=== PATIENT | male | born 1945 | race Caucasian/White ===

== ENCOUNTER 2021-01-02 21:15 | Emergency (ER) | payer OTHER, MEDICARE, SELFPAY ==
[2021-01-02 22:10] VITALS: BP 213/108; PULSE 93; RESP 18; TEMP 38.4; O2SAT 95; BMI 33.3
--- NOTE | 2021-01-02 22:32 | ED_ITS ---
HPI - General Adult General: Chief complaint: General Medical Stated complaint: sore throat Time Seen by Provider: 01/02/21 22:32 Source: patient Mode of arrival: ambulatory Limitations: no limitations History of Present Illness: HPI narrative: Patient is a 75-year-old male who presents to ED today with complaints of a sore throat. Patient tells me throat pain initially began 3 to 4 days ago. He was seen yesterday at [facility]. they tested him for COVID which was negative. Patient has received his COVID immunizations. He was seen at urgent care today and diagnosed with acute pharyngitis and placed on azithromycin. Tested for strep which was negative. Documentation also states that he was given a prescription for viscous lidocaine however patient states he was never provided the prescription. He is continuing to eat and drink normally. He does not complain of fevers although was noted to be febrile in triage. He has complaints of a mild cough. Does not feel short of breath. No chest pain. No sick contacts. No other URI symptoms. Onset (ago): day(s) Severity: moderate Pain Consistency: constant Relieving factors: none Exacerbating factors: other (swallowing) Associated symptoms: Deny chest pain, confusion, dyspnea, headache(s), malaise, nausea, rash or vomiting Review of Systems Const: Denies: fever(s), chills, body aches, change in appetite, change in weight, fatigue or malaise Eyes: Denies: change in vision or blurry vision ENMT: Reports: throat pain and odynophagia; Denies: uvular edema, enlarged tonsils, mouth pain, swelling of lips/tongue, oral sores, bleeding gums, dental pain, ear or mastoid pain, ear discharge, nasal discharge, nasal congestion or epistaxis Card: Denies: chest pain Resp: Denies: dyspnea GI: Denies: nausea or vomiting Musc: Denies: neck pain Skin/Breast: Denies: rash Neuro: Denies: headache(s), numbness in extremities, weakness in extremities, sensory changes, lack of coordination, difficulty walking, frequent falls, dizziness, confusion or Slurred speech present [facility] ED PFSH: Medical History (Updated 01/02/21 @ 22:46 by MOE Bernal) Acute pharyngitis 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 Chase Bilateral L3-L4 decompression History of lumbar surgery (~1979) [place], [place] Lumbar decompression History of parathyroidectomy Family History Mother Diabetes Father Cancer Heart disease Social History Smoking and tobacco status: never smoked Alcohol intake: current Household members: spouse Marital status: Current occupational status: retired History of recent travel: No Physical Exam Const: COMMON NORMALS: no acute distress, patient oriented x3, no limitations and alert GENERAL APPEARANCE: cooperative ORIENTATION/CONSCIOUSNESS: Yes awake, Yes oriented to person, Yes oriented to place and Yes oriented to time HENMT: COMMON NORMALS: normocephalic, atraumatic, hearing grossly normal bilaterally, external ears normal, EAC's normal, TM's normal bilaterally, Normal external nose present, Normal nasal mucous membranes and turbinates present, moist oral mucous membranes and gingiva normal HEAD & SCALP: normal to inspection, normocephalic and atraumatic FACE & SINUS: normal facial exam and sinuses nontender NOSE: Normal external nose present and Normal nasal mucous membranes and turbinates present EXTERNAL EAR: Yes external ears normal EXTERNAL AUDITORY CANAL: EAC's normal TYMPANIC MEMBRANE: TM's normal bilaterally MOUTH: Normal oral and palatal mucosa present, lip normal and tongue normal THROAT: tonsils normal, uvula midline and posterior oropharynx abnormal erythema; no uvular edema Eye: GENERAL EYE: appearance normal, both eyes and all related structures Neck/C-Spine: COMMON NORMALS: full ROM, no lymphadenopathy and no meningeal signs Resp: COMMON NORMALS: normal respiratory effort and clear to auscultation bilaterally AUSCULTATION: clear to auscultation bilaterally Cardio: COMMON NORMALS: regular rate and regular rhythm RATE: regular rate RHYTHM: regular rhythm Extremity: COMMON NORMALS: normal to inspection Neuro: CASSIA COMA SCALE: document GCS findings [place] coma scale eye opening: Spontaneous Cassia coma scale verbal response: Orientated Cassia coma scale motor response: Obey commands Cassia coma scale total score: 15 COMMON NORMALS: patient oriented x3 and CN's II-XII intact bilaterally SENSORIUM/ORIENTATION: Yes alert, Yes oriented to person, Yes oriented to place and Yes oriented to time MENINGEAL SIGNS: Yes no meningeal signs Skin: COMMON NORMALS: no rashes or lesions noted GENERAL SKIN EXAM: no rashes or lesions noted Course Vital Signs: Vital signs: Vital Signs Temperature 101.1 F H 01/02/21 22:10 Pulse Rate 93 01/02/21 22:10 Respiratory Rate 18 01/02/21 22:10 Blood Pressure 213/108 01/02/21 22:10 Pulse Oximetry 95 01/02/21 22:10 MDM - General Adult MDM Narrative: Medical decision making narrative: Patient with acute pharyngitis clinically. No neck swelling. No signs/symptoms of airway obstruction. Noted to be febrile and hypertensive in triage. Admittingly has not been taking his BP meds. Does not complain of a headache or visual changes. He does not complain of shortness of breath, difficulty breathing, or chest pain. We will re-write write him a prescription for the viscous lidocaine to help with pain. He was given a shot of IM Rocephin here as well as 1000mg tylenol for the fever. Recommend he continue the azithromycin given to him by Dr. Rivero earlier today. [facility] symptoms persist. Return to ED precautions given. Discharge Plan Discharge Patient Disposition: Home Clinical Impression: Acute pharyngitis Qualifiers: Pharyngitis/tonsillitis etiology: unspecified etiology Qualified Code(s): J02.9 - Acute pharyngitis, unspecified Condition: Stable Prescriptions: New Lidocaine Viscous 2 % solution 15 ml PO Q4H Qty: 100 RF: 0 No Action escitalopram oxalate 20 mg tablet 10 mg PO DAILY RF: 0 simvastatin 40 mg tablet 40 mg PO DAILY RF: 0 levothyroxine [Synthroid] 112 mcg tablet 112 mcg PO DAILY RF: 0 amlodipine 5 mg tablet 5 mg PO DAILY RF: 0 tamsulosin 0.4 mg capsule 0.4 mg PO DAILY RF: 0 losartan PO RF: 0 famotidine [Acid Community Services Officer (famotidine)] PO RF: 0 azithromycin 250 mg tablet See Rx Instructions PO .COMPLEX Qty: 6 RF: 0 Lidocaine Viscous 2 % solution 5 ml mucous membrane Q6H PRN (Reason: throat pain) Qty: 100 RF: 0 Discharge Orders: Discharge ED (Routine); Ordered 01/02/21 Ordered By: Tami Lake Referrals: Lewis Clements DO [Primary Care Provider] - Patient Instructions: Pharyngitis (ED) Activity Restrictions/Additional Instructions: TroubleYou may continue your current antibiotics as prescribed. [facility] for worsening or not improving symptoms. You need to return to the emergency department immediately for trouble swallowing, lilli bility to eat or drink, controlling your saliva, or any other concerns you may have. Coding Level of Care Code ED Substitute Bus Driver for Laura Fwd Exam Comprehensive
[2021-01-02] MEDS: acetaminophen 500 mg Tablet 1000 MG PO (22:53)
[2021-01-02] MEDS: cefTRIAXone 1,000 MG in lidocaine 1% 2.1 ML 2.1 MG IM (22:55)
== END 2021-01-02 23:26 | disposition home or self-care (01) ==
PROVIDERS: Emergency Provider Physician Assistant; PCP Emergency Medicine Emergency Medical Services
DX: J02.9 Acute pharyngitis, unspecified (principal)
CPT/HCPCS: 87880; 96372; 99283; J0696

== ENCOUNTER 2021-07-19 19:14 | Emergency (ER) | payer OTHER, MEDICARE, SELFPAY ==
[2021-07-19 19:54] VITALS: BP 206/95; PULSE 112; RESP 18; TEMP 38.4; O2SAT 93; BMI 34.6
--- NOTE | 2021-07-19 20:03 | XRR_ITS ---
PROCEDURE INFORMATION: Exam: XR Chest Exam date and time: 07/19/2021 8:03 PM Age: 76 years old Clinical indication: Shortness of breath; Additional info: Fever TECHNIQUE: Imaging protocol: XR of the chest. Views: 1 view. COMPARISON: CR Chest 1 [place] [id number] 12/21/2016 6:28 PM FINDINGS: Lungs: Lungs are clear. Pleural spaces: There is no pleural effusion or pneumothorax. Heart/Mediastinum: There is mild enlargement of the cardiac silhouette. Diaphragm: There is moderate asymmetric elevation of the right hemidiaphragm. Bones/joints: Bones are unremarkable. XR/XR chest 1V portable [id number] IMPRESSION: No acute findings.
[2021-07-19 20:30] VITALS: BP 197/85; PULSE 86; RESP 18; O2SAT 94
--- NOTE | 2021-07-19 20:35 | ED_ITS ---
HPI - General Adult General: Chief complaint: General Medical Stated complaint: Sore Throat\Conjestions\Headache\Fever Time Seen by Provider: 07/19/21 20:17 Source: patient Mode of arrival: ambulatory Limitations: no limitations History of Present Illness: HPI narrative: 76-year-old male states that over the last week has been having cough congestion body aches sore throat no fever. States the chest is worsened throughout the week is febrile here. Denies any shortness of breath denies any worsening or improving factor he has had no vomiting or diarrhea. Denies any chest pain or abdominal pain denies any neck stiffness. Patient is resting comfortably here. Associated symptoms: Reports malaise; Deny chest pain, headache(s), nausea, rash or vomiting Review of Systems Const: Reports: fever(s), chills, body aches and malaise Eyes: Denies: blurry vision or eye discomfort ENMT: Reports: throat pain Card: Denies: chest pain Resp: Reports: non-productive cough GI: Denies: abdominal pain, nausea, vomiting or diarrhea : Denies: dysuria Musc: Denies: neck pain or back pain Skin/Breast: Denies: rash Neuro: Denies: headache(s) Psych: Denies: depression Wilian/Lymph: Denies: easy bruising All/Imm: Denies: urticaria PFSH ED PFSH: Medical History Acute pharyngitis 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 Chase Bilateral L3-L4 decompression History of lumbar surgery (~1979) [place], [place] Lumbar decompression History of parathyroidectomy Family History Mother Diabetes Father Cancer Heart disease Social History Smoking and tobacco status: never smoked Alcohol intake: current Household members: spouse Marital status: Current occupational status: retired History of recent travel: No Physical Exam Const: COMMON NORMALS: no acute distress, patient oriented x3 and healthy appearing HENMT: COMMON NORMALS: normocephalic and atraumatic HEAD & SCALP: normocephalic and atraumatic MOUTH: Normal oral and palatal mucosa present THROAT: posterior oropharynx normal Eye: COMMON NORMALS: Equal, round and reactive pupils present and EOMs intact bilaterally PUPIL: Yes Equal, round and reactive pupils present Neck/C-Spine: COMMON NORMALS: full ROM, supple and no meningeal signs Chest: COMMONS NORMALS: normal inspection of the chest and normal palpation of entire chest wall Resp: COMMON NORMALS: normal respiratory effort, No retractions, No use of accessory muscles and clear to auscultation bilaterally AUSCULTATION: clear to auscultation bilaterally Cardio: COMMON NORMALS: regular rate, regular rhythm and No murmurs present (Cardio) RATE: regular rate RHYTHM: regular rhythm GI: COMMON NORMALS: Normal to inspection, nondistended, normoactive bowel sounds present, Soft to palpation, non-tender and no masses PALPATION: Yes Soft to palpation Extremity: COMMON NORMALS: normal to inspection and full ROM Neuro: COMMON NORMALS: patient oriented x3, moves all extremities and no focal motor deficits MENINGEAL SIGNS: Yes no meningeal signs Psych: COMMON NORMALS: mental status grossly normal, Normal thought process present and cooperative THOUGHT PROCESS: Normal thought process present Skin: COMMON NORMALS: no rashes or lesions noted and no wounds GENERAL SKIN EXAM: no rashes or lesions noted Course Vital Signs: Vital signs: Vital Signs Temperature 101.2 F H 07/19/21 19:54 Pulse Rate 86 07/19/21 22:49 Respiratory Rate 18 07/19/21 22:49 Blood Pressure 173/89 07/19/21 23:05 Pulse Oximetry 93 07/19/21 22:49 MDM - General Adult MDM Narrative: Medical decision making narrative: Patient presents here with fever I did offer him admission as he meets sepsis criteria with his temperature. Was unable to find a source he feels much improved his temperature is improved he is not hypotensive I did offer him admission he states he felt fine and would like to go home we will start him on doxycycline follow blood cultures start him on potassium he is to return if worsening or if he changes mind about admission he understands agrees to plan. Lab Data: Labs: Lab Results 07/19/21 07/19/21 07/19/21 20:44 20:44 20:44 WBC 15.3 10^3/uL H 10 ^3/uL (4.0-10.0) RBC 5.20 10^6/uL 10^6 /uL (4.1-5.3) Hgb 15.0 g/dL g/dL (11.7-16.6) Hct 44.3 % % (42.0-52.0) MCV 85.2 fl fl (80-94) MCH 28.8 pg pg (28.0-34.0) MCHC 33.9 g/dL g/dL (30.0-36.0) RDW 13.2 % % (12.1-15.1) Plt Count 281 10^3/cmm 10^3 /cmm (130-400) MPV 9.6 fL fL (7.4-10.4) Neut % (Auto) 75.6 % % Lymph % (Auto) 11.0 % % Sandoval % (Auto) 9.8 % % Eos % (Auto) 1.8 % % Baso % (Auto) 0.5 % % Neut # (Auto) 11.61 10^3/uL H 1 0^3/uL (1.8-7.7) Lymph # (Auto) 1.7 10^3/uL 10^3/ uL (0.8-4.8) Sandoval # (Auto) 1.5 10^3/uL H 10^ 3/uL (0.2-0.9) Eos # (Auto) 0.3 10^3/uL 10^3/ uL (0.0-0.8) Baso # (Auto) 0.1 10^3/uL 10^3/ uL (0.0-0.1) Nucleated RBC % (a uto) 0 % % Nucleated RBCs # 0.0 /100WBC /100W BC Sodium 138 mmol/L mmol/L (136-145) Potassium 2.8 mmol/L L* mmo l/L (3.5-5.1) Chloride 99 mmol/L mmol/L (98-107) Carbon Dioxide 26 mmol/L mmol/L (22-29) Anion Gap 15.8 (5-19) BUN 14 mg/dL mg/dL (8-23) Creatinine 1.0 mg/dL mg/dL (0.7-1.2) GFR Calculation Not Reportable Glucose 137 mg/dL H mg/dL (65-115) Calculated Osmolal ity 289 mOsm/kg mOsm/ kg (285-295) Lactic Acid 1.0 mmol/L mmol/L (0.5-2.2) Calcium 8.0 mg/dL L mg/dL (8.5-10.5) Total Bilirubin 0.5 mg/dL mg/dL (0.15-1.2) AST 11 U/L U/L (0-40) ALT 13 U/L U/L (0-41) Alkaline Phosphata se 65 IU/L IU/L (40-130) Total Protein 6.8 g/dL g/dL (6.6-8.7) Albumin 3.8 g/dL g/dL (3.5-5.2) Globulin 3.0 g/dL g/dL (1.3-4.6) Urine Color Urine Appearance Urine pH Ur Specific Gravit y Urine Protein Urine Glucose (UA) Urine Ketones Urine Blood Urine Nitrate Urine Bilirubin Urine Urobilinogen Ur Leukocyte Sydney ase Urine RBC Urine WBC Ur Squamous Epith Cells Amorphous Sediment Urine Bacteria Influenza Type A A g Influenza Type B A g SARS-CoV-2 Ag (Rap id) Group A Strep Rapi d 07/19/21 07/19/21 07/19/21 21:36 21:36 21:36 WBC RBC Hgb Hct MCV MCH MCHC RDW Plt Count MPV Neut % (Auto) Lymph % (Auto) Sandoval % (Auto) Eos % (Auto) Baso % (Auto) Neut # (Auto) Lymph # (Auto) Sandoval # (Auto) Eos # (Auto) Baso # (Auto) Nucleated RBC % (a uto) Nucleated RBCs # Sodium Potassium Chloride Carbon Dioxide Anion Gap BUN Creatinine GFR Calculation Glucose Calculated Osmolal ity Lactic Acid Calcium Total Bilirubin AST ALT Alkaline Phosphata se Total Protein Albumin Globulin Urine Color Urine Appearance Urine pH Ur Specific Gravit y Urine Protein Urine Glucose (UA) Urine Ketones Urine Blood Urine Nitrate Urine Bilirubin Urine Urobilinogen Ur Leukocyte Sydney ase Urine RBC Urine WBC Ur Squamous Epith Cells Amorphous Sediment Urine Bacteria Influenza Type A A g Negative (Negative) Influenza Type B A g Negative (Negative) SARS-CoV-2 Ag (Rap id) Negative (Negative) Group A Strep Rapi d Negative (Negative) 07/19/21 21:44 WBC RBC Hgb Hct MCV MCH MCHC RDW Plt Count MPV Neut % (Auto) Lymph % (Auto) [place] % (Auto) Eos % (Auto) Baso % (Auto) Neut # (Auto) Lymph # (Auto) [place] # (Auto) Eos # (Auto) Baso # (Auto) Nucleated RBC % (a uto) Nucleated RBCs # Sodium Potassium Chloride Carbon Dioxide Anion Gap BUN Creatinine GFR Calculation Glucose Calculated Osmolal ity Lactic Acid Calcium Total Bilirubin AST ALT Alkaline Phosphata se Total Protein Albumin Globulin Urine Color Yellow (Yellow) Urine Appearance Clear (CLEAR) Urine pH 7 (5-7) Ur Specific Gravit y 1.010 (1.005-1.030) Urine Protein Trace (Negative) Urine Glucose (UA) Norm (Normal) Urine Ketones Negative (Negative) Urine Blood Trace H (Negative) Urine Nitrate Negative (Negative) Urine Bilirubin Neg (Negative) Urine Urobilinogen Norm mg/dL mg/dL (Negative) Ur Leukocyte Sydney ase Negative (Negative) Urine RBC 0-4 /hpf H /hpf (0-2) Urine WBC 5-10 /hpf H /hpf (0-5) Ur Squamous Epith Cells 0-4 /hpf H /hpf (0-5) Amorphous Sediment Not Reportable Urine Bacteria Trace /hpf /hpf (NONE) Influenza Type A A g Influenza Type B A g SARS-CoV-2 Ag (Rap id) Group A Strep Rapi d Imaging Data^: CXR: Attestation: I personally reviewed and interpreted this imaging study as follows: My impression: [address] [address] XRay Report Signed Patient: Byron Dixon Unit #: [id number] : 1945 Age/Sex: 76 / M ADM Date: 07/19/21 Loc: ER Room/Bed: Attending Dr: Ordering Provider/Ordering MD: Parish Cedillo MD Date of Service: 07/19/21 Procedure(s): XR chest 1V portable [id number] Accession Number(s): [id number] Report Number: [id number] PROCEDURE INFORMATION: Exam: XR Chest Exam date and time: 07/19/2021 8:03 PM Age: 76 years old Clinical indication: Shortness of breath; Additional info: Fever TECHNIQUE: Imaging protocol: XR of the chest. Views: 1 view. COMPARISON: CR Chest 1 [place] [id number] 12/21/2016 6:28 PM FINDINGS: Lungs: Lungs are clear. Pleural spaces: There is no pleural effusion or pneumothorax. Heart/Mediastinum: There is mild enlargement of the cardiac silhouette. Diaphragm: There is moderate asymmetric elevation of the right hemidiaphragm. Bones/joints: Bones are unremarkable. XR/XR chest 1V portable [id number] IMPRESSION: No acute findings. Dictated By: Shola Medina MD Signed By: Shola Medina MD Signed Date/Time: 07/19/212099 DD/ 02 Discharge Plan Discharge Patient Disposition: Home Clinical Impression: Acute viral syndrome, Fever Condition: Stable Prescriptions: New doxycycline hyclate 100 mg tablet 100 mg PO BID 7 Days Qty: 14 RF: 0 potassium chloride 20 mEq packet 40 meq PO BID 5 Days Qty: 30 RF: 0 No Action escitalopram oxalate 20 mg tablet 10 mg PO DAILY RF: 0 simvastatin 40 mg tablet 40 mg PO DAILY RF: 0 levothyroxine [Synthroid] 112 mcg tablet 112 mcg PO DAILY RF: 0 amlodipine 5 mg tablet 5 mg PO DAILY RF: 0 tamsulosin 0.4 mg capsule 0.4 mg PO DAILY RF: 0 losartan PO RF: 0 famotidine [Acid Tip Stretcher (famotidine)] PO RF: 0 azithromycin 250 mg tablet See Rx Instructions PO .COMPLEX Qty: 6 RF: 0 Lidocaine Viscous 2 % solution 5 ml mucous membrane Q6H PRN (Reason: throat pain) Qty: 100 RF: 0 Lidocaine Viscous 2 % solution 15 ml PO Q4H Qty: 100 RF: 0 Discharge Orders: Discharge ED (Routine); Ordered 07/19/21 Ordered By: Parish Cedillo Referrals: Lewis Clements DO [Primary Care Provider] - Discharge Diet: Advance as tolerated Discharge Activity: Resume usual activity Patient Instructions: Fever in Adults (ED), Viral Syndrome (ED) Coding Level of Care Code ED Title Insurance Sales Representative for Chg Fwd Exam Comprehensive
[2021-07-19 20:50] LABS: Basophils # 0.1 10^3/uL (0.0-0.1); Basophils % 0.5 %; Eosinophils # 0.3 10^3/uL (0.0-0.8); Eosinophils % 1.8 %; Hematocrit 44.3 % (42.0-52.0); Lymphocytes # 1.7 10^3/uL (0.8-4.8); Mean Corpuscular HGB Conc 33.9 g/dL (30.0-36.0); Mean Corpuscular Hemoglobin 28.8 pg (28.0-34.0); Mean Corpuscular Volume 85.2 fl (80-94); Mean Platelet Volume 9.6 fL (7.4-10.4); Monocytes # 1.5 10^3/uL (0.2-0.9); Monocytes % 9.8 %; Neutrophils # 11.61 10^3/uL (1.8-7.7); Neutrophils % 75.6 %; Nucleated Red Blood Cells % 0 %; Platelet Count 281 10^3/cmm (130-400); Red Cell Distribution Width 13.2 % (12.1-15.1); White Blood Count 15.3 10^3/uL (4.0-10.0)
[2021-07-19] MEDS: sodium chloride 0.9% 1,000 ML 999 ML IV (21:04)
[2021-07-19] MEDS: acetaminophen 500 mg Tablet 1000 MG PO (21:04)
[2021-07-19 21:13] LABS: Alanine Aminotransferase 13 U/L (0-41); Albumin Level 3.8 g/dL (3.5-5.2); Alkaline Phosphatase 65 IU/L (40-130); Anion Gap 15.8 (5-19); Aspartate Amino Transferase 11 U/L (0-40); Blood Urea Nitrogen 14 mg/dL (8-23); Carbon Dioxide 26 mmol/L (22-29); Chloride 99 mmol/L (98-107); Glucose 137 mg/dL (65-115); Osmolality Calculated 289 mOsm/kg (285-295); Sodium 138 mmol/L (136-145); Total Bilirubin 0.5 mg/dL (0.15-1.2); Total Protein 6.8 g/dL (6.6-8.7)
[2021-07-19 21:18] LABS: Potassium 2.8 mmol/L (3.5-5.1)
[2021-07-19 21:30] VITALS: BP 201/117; PULSE 88; RESP 18; O2SAT 94
[2021-07-19 21:53] LABS: Rapid Strep A Test Negative (Negative)
[2021-07-19 22:08] LABS: Influenza A by IFA Negative (Negative); Influenza B by IFA Negative (Negative); SARS Covid-2 Antigen Negative (Negative)
[2021-07-19 22:08] LABS: Add Urine Culture? No; Add Urine Microscopic? YES; Bacteria Urine TRACE /hpf; Bilirubin Urine Neg (Negative); Blood Urine Trace (Negative); Glucose Urine UA Norm (Normal); Ketones Urine Negative (Negative); Leukocyte Esterase Urine Negative (Negative); Nitrate Urine Negative (Negative); Protein Urine Trace (Negative); RBC Urine 0-4 /hpf (0-2); Squamous Epithelial Cell Urine 0-4 /hpf (0-5); Urine Appearance Clear (CLEAR); Urine Color Yellow (Yellow); Urobilinogen Urine Norm (Negative); pH Urine 7 (5-7)
[2021-07-19] MEDS: potassium chloride ER 20 mEq Tablet 40 MEQ PO (22:10)
[2021-07-19] MEDS: labetalol 5 mg/mL SDV 20mL 10 MG IVP (22:38)
[2021-07-19] MEDS: doxycycline 100 mg Tablet PO (22:38)
[2021-07-19 22:49] VITALS: BP 171/90; PULSE 86; RESP 18; O2SAT 93
[2021-07-19 23:05] VITALS: BP 173/89
== END 2021-07-19 23:08 | disposition home or self-care (01) ==
PROVIDERS: Nurse Practitioner Family; Emergency Provider Emergency Medicine; PCP Emergency Medicine Emergency Medical Services
DX: B34.9 Viral infection, unspecified (principal); Z20.822 Contact with and (suspected) exposure to COVID-19
CPT/HCPCS: 71045; 80053; 81001; 83605; 85025; 87081; 87426; 87804; 87880; 96361; 96374; 99284; J3490; J7030

== ENCOUNTER 2024-06-10 10:27 | Observation (INO) | payer OTHER, SELFPAY ==
[2024-06-10] VITALS (46 sets, daily range): BP systolic 120–214; BP diastolic 58–100; PULSE 50–91; RESP 7–24; TEMP 36.4–36.6; O2SAT 93–99; BMI 32.8; BMI 32.4
--- NOTE | 2024-06-10 10:57 | ECG_ITS ---
Profilepasser [email or web address] Test Date: 2024-06-10 Pat Name: Byron Dixon Department: Room: Gender: Male Sand Shoveler: : 1945 Requested By: Cachorro Cisneros Order Number: [id number] Jovanny MD: Cash Strauss M.D. Measurements Intervals [place] Rate: 58 P: 26 [place]: 195 QRS: 9 QRSD: 156 T: -32 QT: 474 QTc: 469 Interpretive Statements SINUS BRADYCARDIA WITH OCCASIONAL VENTRICULAR PREMATURE COMPLEXES RIGHT BUNDLE BRANCH BLOCK [120+ ms QRS DURATION, UPRIGHT V1, 40+ ms S IN I/aVL/V4/V5/V6] MODERATE T-WAVE ABNORMALITY, CONSIDER LATERAL ISCHEMIA [-0.1+ mV T-WAVE IN I/aVL/V5/V6] MODERATE T-WAVE ABNORMALITY, CONSIDER INFERIOR ISCHEMIA [-0.1+ mV T-WAVE IN II/aVF] Compared to ECG 01/08/2017 14:47:01 T-wave abnormality now present Possible ischemia now present Sinus rhythm no longer present Electronically Signed On 06-11-2024 10:24:40 SUBEDITOR by Cash Strauss M.D. [email or web address]
--- NOTE | 2024-06-10 11:07 | XR_ITS ---
WS: [id number] Exam: XR chest 1V portable [id number] Date/Time of Exam: 06/10/2024 11:10 AM Reason For Exam: dyspnea/cough Comparison 07/19/2021. Eventration of the RIGHT diaphragm again noted and is unchanged. The lungs are fully inflated. No ple ural effusion. Mild cardiac enlargement unchanged. No infiltrates are seen. The mediastinum is normal in contour. Bony structures are intact. XR/XR chest 1V portable [id number] IMPRESSION: 1. Chronic eventration of the RIGHT diaphragm. Mild cardiac enlargement unchang ed. 2. No acute finding.
--- NOTE | 2024-06-10 11:21 | PC.PHAR ---
[facility] at [phone]
[2024-06-10 11:34] LABS: Basophils # 0.1 10^3/uL (0.0-0.1); Basophils % 0.8 %; Eosinophils # 0.2 10^3/uL (0.0-0.8); Eosinophils % 2.6 %; Hematocrit 44.8 % (37-53); Lymphocytes # 1.8 10^3/uL (0.8-4.8); Lymphocytes % 23.5 %; Mean Corpuscular HGB Conc 33.5 g/dL (30-55); Mean Corpuscular Hemoglobin 28.5 pg (27-33); Mean Corpuscular Volume 85.2 fl (82-101); Mean Platelet Volume 10.4 fL (7.4-10.4); Monocytes # 0.6 10^3/uL (0.2-0.9); Monocytes % 8.2 %; Neutrophils # 4.71 10^3/uL (1.8-7.7); Neutrophils % 63.2 %; Nucleated Red Blood Cells % 0 %; Platelet Count 224 10^3/cmm (157-399); Red Blood Count 5.26 10^6/uL (3.85-5.65); Red Cell Distribution Width 13.3 % (12.1-15.1); White Blood Count 7.45 10^3/uL (3.29-11.43)
[2024-06-10 11:55] LABS: Troponin(5th) Baseline 22 ng/L (0-15)
--- NOTE | 2024-06-10 11:57 | PC.NURSE ---
BP 179/89, Dr. Conte notified and stated to hold bp medication at this time.
[2024-06-10 12:09] LABS: Alanine Aminotransferase 18 U/L (0-41); Albumin Level 3.7 g/dL (3.5-5.2); Alkaline Phosphatase 79 U/L (40-130); Anion Gap 15.1 (5-19); Aspartate Amino Transferase 18 U/L (0-40); Blood Urea Nitrogen 14 mg/dL (8-23); Calcium 8.8 mg/dL (8.5-10.5); Carbon Dioxide 25 mmol/L (22-29); Chloride 101 mmol/L (98-107); Creatinine Clr Calc Pharmacy 70.6253; Globulin 2.7 g/dL (1.3-4.6); Glucose 237 mg/dL (65-115); Osmolality Calculated 294 mOsm/kg (285-295); Potassium 3.1 mmol/L (3.5-5.1); Sodium 138 mmol/L (136-145); Total Bilirubin 0.5 mg/dL (0.15-1.2); Total Protein 6.4 g/dL (6.6-8.7)
[2024-06-10] MEDS: aspirin 81 mg Chew Tablet 324 MG PO (12:20)
[2024-06-10] MEDS: hyDRALAzine 20 mg/mL INJ 1 mL 10 MG IVP ×2 (12:37→15:46)
--- NOTE | 2024-06-10 12:37 | ED_ITS ---
HPI - Recheck/Abnormal Lab/Rx 2 General: Chief Complaint: Recheck/Abnormal Lab/Rx Stated Complaint: va sent hypertension Time Seen by Provider: 06/10/24 11:07 History of Present Illness: 79-year-old male presents emergency room at the direction of his doctor from the [place]. He was at the [place] had markedly elevated blood pressure. He is on multiple blood pressure medications this family member who is good they have a few of the missed doses. He missed some doses yesterday but they did take them this morning he denies any chest pain lightheadedness dizziness weakness difficulty speaking or swallowing or vision changes. No other symptoms at this time. Related Data Home Medications Medication Instructions Recorded Confirmed escitalopram oxalate 20 mg tablet 10 mg PO DAILY 09/27/19 06/10/24 simvastatin 40 mg tablet 20 mg PO DAILY 09/27/19 06/10/24 tamsulosin 0.4 mg capsule 0.4 mg PO DAILY 09/27/19 06/10/24 clonidine HCl 0.1 mg tablet 0.1 mg PO BID 04/01/24 06/10/24 sildenafil 100 mg tablet 100 mg PO DAILY PRN activity 04/01/24 06/10/24 amlodipine 10 mg tablet 10 mg PO DAILY 06/10/24 06/10/24 famotidine 20 mg tablet 20 mg PO BID 06/10/24 06/10/24 levothyroxine 125 mcg tablet 125 mcg PO DAILY 06/10/24 06/10/24 losartan 100 mg tablet 100 mg PO DAILY 06/10/24 06/10/24 Allergies Allergy/AdvReac Type Severity Reaction Status Date / Time No Known Allergies Allergy Verified 04/01/24 12:41 Review of Systems 2 Const: Denies: fever(s) or chills Card: Denies: chest pain Resp: Denies: dyspnea GI: Denies: abdominal pain : Denies: dysuria, urinary frequency or urinary urgency Musc: Denies: neck pain or back pain Skin/Breast: Denies: rash PFSH ED 2 PFSH: Medical History Elevated blood pressure reading Acute pharyngitis Cervical disc disorder with myelopathy of mid-cervical region Lumbar post-laminectomy syndrome Spinal stenosis of lumbar region at multiple levels Displacement of lumbar disc with radiculopathy Surgical History History of lumbar surgery (~1979) [place], [place] Lumbar decompression History of parathyroidectomy History of knee surgery (~08/12/16) Right History of lumbar surgery (~02/11/10) Dr. Chase Bilateral L3-L4 decompression Family History Mother Diabetes Father Cancer Heart disease Social History Smoking and tobacco/nicotine status: unknown if used tobacco/nicotine Alcohol intake: current Substance/Drug Use: never Household members: spouse Marital status: Current occupational status: retired Physical Exam 2 Const: COMMON NORMALS: no acute distress GENERAL APPEARANCE: cooperative and comfortable ORIENTATION/CONSCIOUSNESS: Yes awake, Yes oriented to person, Yes oriented to place and Yes oriented to time HENMT: COMMON NORMALS: normocephalic, atraumatic and hearing grossly normal bilaterally HEAD & SCALP: normocephalic and atraumatic Resp: COMMON NORMALS: normal respiratory effort, No retractions, No use of accessory muscles and clear to auscultation bilaterally AUSCULTATION: clear to auscultation bilaterally Cardio: COMMON NORMALS: regular rate, regular rhythm and No murmurs present (Cardio) RATE: regular rate RHYTHM: regular rhythm GI: COMMON NORMALS: Soft to palpation and No hepatosplenomegaly present A USCULTATION: Yes normoactive bowel sounds PALPATION: Yes Soft to palpation, No Tenderness to palpation present (GI), No Guarding due to palpation present (GI) and Yes No hepatosplenomegaly present Extremity: COMMON NORMALS: normal to inspection, capillary refill normal, no clubbing, cyanosis or edema, no calf tenderness and no pedal edema Neuro: SENSORIUM/ORIENTATION: Yes oriented to person, Yes oriented to place and Yes oriented to time Skin: COMMON NORMALS: no rashes or lesions noted GENERAL SKIN EXAM: no rashes or lesions noted Course 2 Vital Signs: Vital signs: Vital Signs Temperature 97.5 F L 06/10/24 19:00 Pulse Rate 59 L 06/11/24 04:30 Respiratory Rate 5 L 06/11/24 04:30 Blood Pressure 133/70 06/11/24 04:30 Pulse Oximetry 95 06/11/24 04:30 Oxygen Delivery Me thod Room Air 06/10/24 20:21 Fraction of Inspir ed Oxygen 21 06/10/24 23:42 MDM - Recheck/Abnormal Lab/Rx Medical Decision Making Multiple meds given including hydralazine IV and oral enalaprilat IV as well. Despite this patient continues to have rebound hypertension. He does not have any focal neurologic deficits. Where his blood pressure remains uncontrollable. I suspect some of this may be rebound from his clonidine. Will start on nicardipine and placed on observation discussed with hospitalist orders written Medical Records I reviewed the patient's medical records. Lab Data I reviewed the patient's lab results. 06/11/24 04:50 06/11/24 04:50 Radiology Impressions Chest X-Ray 06/10/24 11:07 IMPRESSION: 1. Chronic eventration of the RIGHT diaphragm. Mild cardiac enlargement unchanged. 2. No acute finding. Head CT 06/10/24 17:08 IMPRESSION: No acute intracranial abnormality. Laboratory Results WBC 7.45 10^3/uL (3.29-11.43) 06/10/24 11:25 RBC 5.26 10^6/uL (3.85-5.65) 06/10/24 11:25 Hgb 15.00 g/dL (11.27-16.99) 06/10/24 11:25 Hct 44.8 % (37-53) 06/10/24 11:25 MCV 85.2 fl (82-101) 06/10/24 11:25 MCH 28.5 pg (27-33) 06/10/24 11:25 MCHC 33.5 g/dL (30-55) 06/10/24 11:25 RDW 13.3 % (12.1-15.1) 06/10/24 11:25 Plt Count 224 10^3/cmm (157-399) 06/10/24 11:25 MPV 10.4 fL (7.4-10.4) 06/10/24 11:25 Neut % (Auto) 63.2 % 06/10/24 11:25 Lymph % (Auto) 23.5 % 06/10/24 11:25 [place] % (Auto) 8.2 % 06/10/24 11:25 Eos % (Auto) 2.6 % 06/10/24 11:25 Baso % (Auto) 0.8 % 06/10/24 11:25 Neut # (Auto) 4.71 10^3/uL (1.8-7.7) 06/10/24 11:25 Lymph # (Auto) 1.8 10^3/uL (0.8-4.8) 06/10/24 11:25 [place] # (Auto) 0.6 10^3/uL (0.2-0.9) 06/10/24 11:25 Eos # (Auto) 0.2 10^3/uL (0.0-0.8) 06/10/24 11:25 Baso # (Auto) 0.1 10^3/uL (0.0-0.1) 06/10/24 11:25 Nucleated RBC % (auto) 0 % 06/10/24 11:25 Nucleated RBCs # 0.0 /100WBC 06/10/24 11:25 Sodium 138 mmol/L (136-145) 06/10/24 11:25 Potassium 3.1 mmol/L (3.5-5.1) L 06/10/24 11:25 Chloride 101 mmol/L (98-107) 06/10/24 11:25 Carbon Dioxide 25 mmol/L (22-29) 06/10/24 11:25 Anion Gap 15.1 (5-19) 06/10/24 11:25 BUN 14 mg/dL (8-23) 06/10/24 11:25 Creatinine 0.9 mg/dL (0.7-1.2) 06/10/24 11:25 GFR Calculation Not Reportable 06/10/24 11:25 Glucose 237 mg/dL (65-115) H 06/10/24 11:25 Estimat Average Glucose 169 06/10/24 11:34 Hemoglobin A1c 7.5 % (4.0-6.0) H 06/10/24 11:34 Calculated Osmolality 294 mOsm/kg (285-295) 06/10/24 11:25 Calcium 8.8 mg/dL (8.5-10.5) 06/10/24 11:25 Total Bilirubin 0.5 mg/dL (0.15-1.2) 06/10/24 11:25 AST 18 U/L (0-40) 06/10/24 11:25 ALT 18 U/L (0-41) 06/10/24 11:25 Alkaline Phosphatase 79 U/L (40-130) 06/10/24 11:25 Troponin T Baseline 22 ng/L (0-15) H 06/10/24 11:25 Troponin T 120 Minute 22.90 ng/L (0-15) H 06/10/24 13:34 Delta Troponin T 0.90 ABS# (0-10) 06/10/24 13:34 Troponin T Hi Sens 6Hr 21.23 ng/L (0-15) H 06/10/24 17:29 Troponin T Hi Sens 6Hr Delta -0.77 ng/L (0-12) L 06/10/24 17:29 Total Protein 6.4 g/dL (6.6-8.7) L 06/10/24 11:25 Albumin 3.7 g/dL (3.5-5.2) 06/10/24 11:25 Globulin 2.7 g/dL (1.3-4.6) 06/10/24 11:25 Triglycerides 141 mg/dL (0-150) 06/10/24 11:34 Cholesterol 153 mg/dL (0-200) 06/10/24 11:34 LDL Cholesterol, Calc 88 mg/dL (50-129) 06/10/24 11:34 HDL Cholesterol 37 mg/dL (60-100) L 06/10/24 11:34 LDL/HDL Ratio 2.38 RATIO (0.00-3.22) 06/10/24 11:34 Cholesterol/HDL Ratio 4.14 mg/dL (1.0-5.00) 06/10/24 11:34 TSH 3.90 uIU/mL (0.27-4.20) 06/10/24 11:34 All radiology interpretation(s) finalized by discharge Discharge Plan Discharge Patient Disposition: Admitted As Inpatient Admit Provider: Frankie Gibbs Clinical Impression: Hypertensive urgency Condition: Stable Coding Level of Care Code ED Concrete Stone Finisher for Laura Albrecht
--- NOTE | 2024-06-10 13:31 | ECG_ITS ---
[facility] Test Date: 2024-06-10 Pat Name: Byron Dixon Department: Room: Gender: Male Mentally Retarded Teacher: : 1945 Requested By: Cachorro Cisneros Order Number: [id number] Jovanny MD: Cash Strauss M.D. Measurements Intervals [place] Rate: 50 P: 32 ID: [id number] QRS: 15 QRSD: 152 T: 240 QT: 506 QTc: 464 Interpretive Statements SINUS BRADYCARDIA RIGHT BUNDLE BRANCH BLOCK [120+ ms QRS DURATION, UPRIGHT V1, 40+ ms S IN I/aVL/V4/V5/V6] MODERATE T-WAVE ABNORMALITY, CONSIDER LATERAL ISCHEMIA [-0.1+ mV T-WAVE IN I/aVL/V5/V6] MODERATE T-WAVE ABNORMALITY, CONSIDER INFERIOR ISCHEMIA [-0.1+ mV T-WAVE IN II/aVF] Compared to ECG 06/10/2024 10:57:09 Ventricular premature complex(es) no longer present T-wave abnormality still present Possible ischemia still present Electronically Signed On 06-11-2024 10:35:19 OPEN HEARTH STOCKYARD SUPERVISOR by Cash Strauss M.D. [id number]
--- NOTE | 2024-06-10 14:55 | PC.NURSE ---
Dr. Conte notified of pts bp of 201/90
[2024-06-10] MEDS: hyDRALAzine 25 mg Tablet 50 MG PO (16:41)
[2024-06-10] MEDS: enalaprilat 2.5 mg/2 mL SDV 1.25 MG IVP (16:43)
--- NOTE | 2024-06-10 17:08 | CTR_ITS ---
PROCEDURE INFORMATION: Exam: CT Head Without Contrast Exam date and time: 06/10/2024 5:37 PM Age: 79 years old Clinical indication: Altered mental status/memory loss; Confusion or disorientation; Additional info: Accelerated HTN TECHNIQUE: Imaging protocol: Computed tomography of the head without contrast. Radiation optimization: All CT scans at this facility use at least one of these dose optimization techniques: automated exposure control; mA and/or kV adjustment per patient size (includes targeted exams where dose is matched to clinical indication); or iterative reconstruction. COMPARISON: MR cervical spin wo con* [id number] 08/03/2017 3:18 PM RADIATION DOSE METRICS: Total DLP (mGy-cm): 1063.48 FINDINGS: Brain: No hemorrhage. No edema. Advanced diffuse cerebral atrophy and moderate sequela of chronic small vessel ischemic disease. No mass effect. Cerebral ventricles: No ventriculomegaly. Paranasal sinuses: Visualized sinuses are unremarkable. No fluid levels. Mastoid air cells: Visualized mastoid air cells are well aerated. Bones: Unremarkable. No acute fracture. Soft tissues: Unremarkable. CT/CT head wo con* [id number] IMPRESSION: No acute intracranial abnormality.
[2024-06-10] MEDS: nicardipine 20 MG/200 ML PREMIX 50 MG IV (17:11)
--- NOTE | 2024-06-10 17:15 | ECG_ITS ---
[facility] Test Date: 2024-06-10 Pat Name: Byron Dixon Department: Room: Gender: Male Kst Operator: : 1945 Requested By: Cachorro Cisneros Order Number: [id number] Jovanny MD: Cash Strauss M.D. Measurements Intervals [place] Rate: 64 P: 56 UT: 199 QRS: 3 QRSD: 152 T: 17 QT: 456 QTc: 473 Interpretive Statements SINUS RHYTHM INDETERMINATE AXIS RIGHT BUNDLE BRANCH BLOCK [120+ ms QRS DURATION, UPRIGHT V1, 40+ ms S IN I/aVL/V4/V5/V6] Compared to ECG 06/10/2024 13:31:06 Indeterminate axis now present Sinus bradycardia no longer present T-wave abnormality no longer present Possible ischemia no longer present Electronically Signed On 06-11-2024 10:33:46 AIRCRAFT LIFE SUPPORT FITTER by Cash Strauss M.D. [id number]
--- NOTE | 2024-06-10 17:27 | P.HP_ITS ---
Providers/Chief Complaint 2 Primary Care Provider: Lewis Clements DO Chief Complaint: va sent hypertension History of Present Illness Byron Dixon is a 79 year old male with a past medical history of hypertension, hypothyroidism, hyperlipidemia who presents to [facility] due to elevated blood pressures. Currently patient is alert oriented x 3 following all commands, denies any active chest pain, no shortness of breath no strokelike symptoms, no focal weakness. Patient tells that he uses his medication as prescribed, he lives here in town and lives by himself, he has been having elevated blood pressures, he presented to the [place] this afternoon his blood pressures were found to be elevated so he was directed to the ER. Denies a cardiovascular history, but does report intermittent chest pain becoming more frequently recently no active chest pain, no shortness of breath Review of Systems 2 Card: Reports: chest pain; Denies: palpitations, dyspnea on exertion or orthopnea Resp: Denies: dyspnea Neuro: Denies: headache(s), numbness in extremities or weakness in extremities Medications/Allergies Home Medications Medication Instructions Recorded Confirmed Last Taken Type escitalopram oxalate 20 mg tablet 10 mg PO DAILY 09/27/19 06/10/24 Unknown History simvastatin 40 mg tablet 20 mg PO DAILY 09/27/19 06/10/24 Unknown History tamsulosin 0.4 mg capsule 0.4 mg PO DAILY 09/27/19 06/10/24 Unknown History clonidine HCl 0.1 mg tablet 0.1 mg PO BID 04/01/24 06/10/24 Unknown History sildenafil 100 mg tablet 100 mg PO DAILY PRN activity 04/01/24 06/10/24 Unknown History amlodipine 10 mg tablet 10 mg PO DAILY 06/10/24 06/10/24 Unknown History famotidine 20 mg tablet 20 mg PO BID 06/10/24 06/10/24 Unknown History levothyroxine 125 mcg tablet 125 mcg PO DAILY 06/10/24 06/10/24 Unknown History losartan 100 mg tablet 100 mg PO DAILY 06/10/24 06/10/24 Unknown History Allergies Allergy/AdvReac Type Severity Reaction Status Date / Time No Known Allergies Allergy Verified 04/01/24 12:41 PFSH Acute 2 PFSH: Medical History Elevated blood pressure reading Acute pharyngitis Cervical disc disorder with myelopathy of mid-cervical region Lumbar post-laminectomy syndrome Spinal stenosis of lumbar region at multiple levels Displacement of lumbar disc with radiculopathy Surgical History History of lumbar surgery (~1979) [place], [place] Lumbar decompression History of parathyroidectomy History of knee surgery (~08/12/16) Right History of lumbar surgery (~02/11/10) Dr. Chase Bilateral L3-L4 decompression Family History Mother Diabetes Father Cancer Heart disease Social History Smoking and tobacco/nicotine status: unknown if used tobacco/nicotine Alcohol intake: current Substance/Drug Use: never Household members: spouse Marital status: Current occupational status: retired Vitals/I&O/Wt Last Vital Signs Temp 97.9 F 06/10/24 10:44 Pulse 65 06/10/24 17:00 Resp 18 06/10/24 17:00 BP 203/94 06/10/24 17:00 Pulse Ox 98 06/10/24 17:00 O2 Del Method Room Air 06/10/24 17:00 Weight last 48 hrs Weight 89.358 kg Physical Exam 2 Const: COMMON NORMALS: no acute distress and patient oriented x3 HENMT: COMMON NORMALS: normocephalic HEAD & SCALP: normocephalic Neck/C-Spine: COMMON NORMALS: no JVD Resp: COMMON NORMALS: normal respiratory effort, No retractions, No use of accessory muscles and clear to auscultation bilaterally AUSCULTATION: clear to auscultation bilaterally Cardio: COMMON NORMALS: no JVD, regular rate, regular rhythm, S1 normal heart sound present and S2 normal heart sound present RATE: regular rate RHYTHM: regular rhythm HEART SOUNDS: S1 normal heart sound present and S2 normal heart sound present GI: COMMON NORMALS: Normal to inspection, nondistended, normoactive bowel sounds present, Soft to palpation and non-tender Extremity: COMMON NORMALS: no calf tenderness and no pedal edema Neuro: COMMON NORMALS: patient oriented x3, CN's II-XII intact bilaterally and moves all extremities Psych: COMMON NORMALS: mental status grossly normal Data 06/10/24 11:25 11/22/24 11:25 A&P Assessment and plan (1) Hypertensive urgency: Plan Hypertensive urgency -Lower systolic blood pressure to 160/100 -Or no more than 25% lower than baseline blood pressure Plan -Continue home medications -Continue Cardene drip -Serial EKGs, start troponins, telemetry monitoring -CT head -Echo -Monitor clinical status closely -Full code -Lovenox for DVT prophylaxis Attestations 2 Medical Necessity Statement*: Patient requires hospitalization for hypertensive urgency Diagnoses Hypertensive urgency I16.0
[2024-06-10 17:52] LABS: Troponin 5 6HR 21.23 ng/L (0-15)
[2024-06-10 17:58] LABS: Troponin 5 6HR Delta -0.77 ng/L (0-12)
[2024-06-10 19:52] LABS: Chol HDL Ratio 4.14 mg/dL (1.0-5.00); Cholesterol 153 mg/dL (0-200); HDL Cholesterol 37 mg/dL (60-100); LDL Cholesterol Calculated 88 mg/dL (50-129); LDL HDL Ratio 2.38 RATIO (0.00-3.22); Triglycerides 141 mg/dL (0-150)
[2024-06-10] MEDS: pantoprazole 40 mg SDV IVP (20:26)
[2024-06-10 20:54] LABS: Estmated Average Glucose 169; Hemoglobin A1C 7.5 % (4.0-6.0)
[2024-06-10] MEDS: nicardipine 20 MG/200 ML PREMIX 30 MG IV (21:32)
[2024-06-10] MEDS: enoxaparin 40 mg/0.4 mL Syringe SUBCUT (21:33)
[2024-06-10 22:01] LABS: Bilirubin Urine Negative (Negative); Blood Urine Negative (Negative); Glucose Urine UA Negative (Normal); Ketones Urine Negative (Negative); Leukocyte Esterase Urine Negative (Negative); Nitrate Urine Negative (Negative); Protein Urine 1+ (Negative); Specific Gravity, Urine 1.011 (1.005-1.030); Urine Appearance Clear (CLEAR); Urine Color Yellow (Yellow); Urobilinogen Urine 0.2 mg/dL (Negative)
[2024-06-10 22:03] LABS: Add Urine Microscopic? YES; Bacteria Urine None Seen /hpf; Hyaline Casts Urine 0-4 /lpf; RBC Urine 0-2 /hpf (0-2); Squamous Epithelial Cell Urine 0-5 /hpf (0-5); WBC Urine 0-5 /hpf (0-5)
[2024-06-11] VITALS (42 sets, daily range): BP systolic 129–178; BP diastolic 53–101; PULSE 53–78; RESP 5–26; TEMP 36.2–36.9; O2SAT 94–99
[2024-06-11] MEDS: nicardipine 20 MG/200 ML PREMIX 30 MG IV (03:51)
[2024-06-11 05:15] LABS: Basophils # 0.1 10^3/uL (0.0-0.1); Basophils % 0.5 %; Eosinophils # 0.1 10^3/uL (0.0-0.8); Eosinophils % 1.3 %; Hematocrit 42.7 % (37-53); Lymphocytes # 1.6 10^3/uL (0.8-4.8); Lymphocytes % 16.3 %; Mean Corpuscular Hemoglobin 28.9 pg (27-33); Mean Corpuscular Volume 85.1 fl (82-101); Mean Platelet Volume 9.6 fL (7.4-10.4); Monocytes # 0.9 10^3/uL (0.2-0.9); Monocytes % 8.5 %; Neutrophils # 7.21 10^3/uL (1.8-7.7); Neutrophils % 72.5 %; Nucleated Red Blood Cells % 0 %; Platelet Count 268 10^3/cmm (157-399); Red Blood Count 5.02 10^6/uL (3.85-5.65); Red Cell Distribution Width 13.6 % (12.1-15.1); White Blood Count 9.95 10^3/uL (3.29-11.43)
[2024-06-11 05:41] LABS: Alanine Aminotransferase 17 U/L (0-41); Albumin Level 3.6 g/dL (3.5-5.2); Alkaline Phosphatase 63 U/L (40-130); Anion Gap 12.9 (5-19); Aspartate Amino Transferase 17 U/L (0-40); Blood Urea Nitrogen 13 mg/dL (8-23); Calcium 8.4 mg/dL (8.5-10.5); Carbon Dioxide 28 mmol/L (22-29); Chloride 104 mmol/L (98-107); Creatinine Clr Calc Pharmacy 57.5114; Globulin 2.4 g/dL (1.3-4.6); Glucose 147 mg/dL (65-115); Magnesium 1.9 mg/dL (1.7-2.3); Osmolality Calculated 297 mOsm/kg (285-295); Phosphorus 2.8 mg/dL (2.5-4.5); Sodium 142 mmol/L (136-145); Total Bilirubin 0.5 mg/dL (0.15-1.2)
[2024-06-11 05:54] LABS: Potassium 2.9 mmol/L (3.5-5.1)
[2024-06-11] MEDS: potassium chloride ER 20 mEq Tablet 40 MEQ PO (07:39)
[2024-06-11] MEDS: escitalopram 10 mg Tablet PO (08:28)
[2024-06-11] MEDS: tamsulosin 0.4 mg Capsule PO (08:29)
[2024-06-11] MEDS: levothyroxine 125 mcg Tablet PO (08:29)
[2024-06-11] MEDS: atorvastatin 40 mg Tablet 20 MG PO (08:29)
[2024-06-11] MEDS: aspirin 81 mg EC Tablet PO (08:29)
[2024-06-11] MEDS: cloNIDine 0.1 mg Tablet 0.2 MG PO (08:29)
[2024-06-11] MEDS: losartan 50 mg Tablet 100 MG PO (08:29)
[2024-06-11] MEDS: amlodipine 10 mg Tablet PO (08:52)
--- NOTE | 2024-06-11 09:44 | PC.NURSE ---
Dr. Gibbs at bedside, cardine drip stopped.
--- NOTE | 2024-06-11 11:05 | PM.DCS ---
Discharge Providers Date of Admission: 06/10/24 18:15 Date of Discharge: June 11, 2024 Attending Provider at Admission: Frankie Gibbs MD Attending Provider at Discharge: Frankie Gibbs MD Primary Care Provider: Lewis Clements DO Diagnoses at Discharge Discharge Diagnosis (1) Hypertensive urgency: Status: Resolved Reason for Visit Reason for Visit: ct sent hypertension Hospital Course Hospital Course Byron Dixon is a 79 year old male with a past medical history of hypertension, hypothyroidism, hyperlipidemia who presents to [facility] due to elevated blood pressures. Currently patient is alert oriented x 3 following all commands, denies any active chest pain, no shortness of breath no strokelike symptoms, no focal weakness. Patient tells that he uses his medication as prescribed, he lives here in town and lives by himself, he has been having elevated blood pressures, he presented to the [facility] this afternoon his blood pressures were found to be elevated so he was directed to the ER. Denies a cardiovascular history, but does report intermittent chest pain becoming more frequently recently no active chest pain, no shortness of breath Patient was admitted to [facility] for hypertensive urgency, requiring nicardipine drip, overall clinically improved, weaned off Cardene drip, remained asymptomatic, no chest pain, no strokelike symptoms, no shortness of breath, transitioned to p.o. medications. And discharged on p.o. blood pressure medications with close follow-up with primary care provider as outpatient Patient was diagnosed with type 2 diabetes mellitus, discharged with diabetic medications, and instructions as below -Please monitor your blood sugars closely -Monitor your blood sugars 3 times daily as after meals -Please record your blood sugars, and a blood sugar log -For your NovoLog -Please inject blood sugar after meals based on sliding scale provided -Do not inject insulin if you do not eat as hypoglycemia kills -This is a NovoLog sliding scale -Insulin sliding ?fingerstick? Insulin ?141-180?0 units/sq 181-220?2 units/sq ?221-260?4 units/sq ?261-300 6 units/sq ?301-350?8 units/sq ?351-400 10 units/sq ?401-450?12 units/sq >450? 14units/sq -If your blood sugar is greater than 500 go to the emergency room -If your blood sugar is less than 60 or at anytime you feel lightheaded or dizzy or diaphoretic or have chest palpitations check your blood sugar, and eat a hard candy or drink orange juice and go immediately to the emergency room -Remember hypoglycemia kills, so if his blood sugar is less than 60 we have to increase it by taking in a sugary meal such as a hard candy or orange juice and go to the emergency room -If you have any questions please call us where here to help --Take metformin 500 mg twice daily, have your primary care provider recheck your liver function and your kidney function in 1 week -Please monitor your blood pressure daily -If your blood pressure greater than 180/100, please come back to the emergency room -See your primary care provider recheck blood pressure in 1 week -If you have chest pain please come back to emergency room -Follow-up with cardiology -Monitor for lightheadedness, dizziness if so come back to the hospital -Please call Thursday to schedule a follow-up appointment with your primary care provider, Dr. Clements. -Please call Thursday to schedule a follow-up appointment with Dr. Strauss in 7 -10 days. Physical Exam Const: COMMON NORMALS: no acute distress and patient oriented x3 Resp: COMMON NORMALS: normal respiratory effort, No retractions, No use of accessory muscles and clear to auscultation bilaterally AUSCULTATION: clear to auscultation bilaterally Cardio: COMMON NORMALS: regular rate, regular rhythm, S1 normal heart sound present and S2 normal heart sound present RATE: regular rate RHYTHM: regular rhythm HEART SOUNDS: S1 normal heart sound present and S2 normal heart sound present GI: COMMON NORMALS: Normal to inspection, nondistended, normoactive bowel sounds present and non-tender Extremity: COMMON NORMALS: no pedal edema Neuro: COMMON NORMALS: patient oriented x3 Psych: COMMON NORMALS: mental status grossly normal Discharge Data Studies Completed and Pending Completed Studies During Hospitalization Category Date Time Status CT head wo con* [id number] Stat Cat Scan 06/10/24 17:08 Completed XR chest 1V portable [id number] Stat Exams 06/10/24 11:07 Completed Pending at discharge Category Date Time Status Complete Blood Count w/Auto AM LABS Lab 06/12/24 04:00 Ordered Complete Blood Count w/Auto AM LABS Lab 06/13/24 04:00 Ordered Comprehensive Metabolic Panel AM LABS Lab 06/12/24 04:00 Ordered Comprehensive Metabolic Panel AM LABS Lab 06/13/24 04:00 Ordered Magnesium AM LABS Lab 06/12/24 04:00 Ordered Magnesium AM LABS Lab 06/13/24 04:00 Ordered Phosphorus AM LABS Lab 06/12/24 04:00 Ordered Phosphorus AM LABS Lab 06/13/24 04:00 Ordered CV. echo complete* [id number] Stat Ultrasound 06/11/24 17:27 Taken Radiology Impressions Chest X-Ray 06/10/24 11:07 IMPRESSION: 1. Chronic eventration of the RIGHT diaphragm. Mild cardiac enlargement unchanged. 2. No acute finding. Head CT 06/10/24 17:08 IMPRESSION: No acute intracranial abnormality. Laboratory Results WBC 9.95 10^3/uL (3.29-11.43) 06/11/24 04:50 RBC 5.02 10^6/uL (3.85-5.65) 06/11/24 04:50 Hgb 14.50 g/dL (11.27-16.99) 06/11/24 04:50 Hct 42.7 % (37-53) 06/11/24 04:50 MCV 85.1 fl (82-101) 06/11/24 04:50 MCH 28.9 pg (27-33) 06/11/24 04:50 MCHC 34.0 g/dL (30-55) 06/11/24 04:50 RDW 13.6 % (12.1-15.1) 06/11/24 04:50 Plt Count 268 10^3/cmm (157-399) 06/11/24 04:50 MPV 9.6 fL (7.4-10.4) 06/11/24 04:50 Neut % (Auto) 72.5 % 06/11/24 04:50 Lymph % (Auto) 16.3 % 06/11/24 04:50 [place] % (Auto) 8.5 % 06/11/24 04:50 Eos % (Auto) 1.3 % 06/11/24 04:50 Baso % (Auto) 0.5 % 06/11/24 04:50 Neut # (Auto) 7.21 10^3/uL (1.8-7.7) 06/11/24 04:50 Lymph # (Auto) 1.6 10^3/uL (0.8-4.8) 06/11/24 04:50 [place] # (Auto) 0.9 10^3/uL (0.2-0.9) 06/11/24 04:50 Eos # (Auto) 0.1 10^3/uL (0.0-0.8) 06/11/24 04:50 Baso # (Auto) 0.1 10^3/uL (0.0-0.1) 06/11/24 04:50 Nucleated RBC % (auto) 0 % 06/11/24 04:50 Nucleated RBCs # 0.0 /100WBC 06/11/24 04:50 Sodium 142 mmol/L (136-145) 06/11/24 04:50 Potassium 2.9 mmol/L (3.5-5.1) L 06/11/24 04:50 Chloride 104 mmol/L (98-107) 06/11/24 04:50 Carbon Dioxide 28 mmol/L (22-29) 06/11/24 04:50 Anion Gap 12.9 (5-19) 06/11/24 04:50 BUN 13 mg/dL (8-23) 06/11/24 04:50 Creatinine 1.1 mg/dL (0.7-1.2) 06/11/24 04:50 GFR Calculation Not Reportable 06/11/24 04:50 Glucose 147 mg/dL (65-115) H 06/11/24 04:50 Estimat Average Glucose 169 06/10/24 11:34 Hemoglobin A1c 7.5 % (4.0-6.0) H 06/10/24 11:34 Calculated Osmolality 297 mOsm/kg (285-295) H 06/11/24 04:50 Calcium 8.4 mg/dL (8.5-10.5) L 06/11/24 04:50 Phosphorus 2.8 mg/dL (2.5-4.5) 06/11/24 04:50 Magnesium 1.9 mg/dL (1.7-2.3) 06/11/24 04:50 Total Bilirubin 0.5 mg/dL (0.15-1.2) 06/11/24 04:50 AST 17 U/L (0-40) 06/11/24 04:50 ALT 17 U/L (0-41) 06/11/24 04:50 Alkaline Phosphatase 63 U/L (40-130) 06/11/24 04:50 Troponin T Baseline 22 ng/L (0-15) H 06/10/24 11:25 Troponin T 120 Minute 22.90 ng/L (0-15) H 06/10/24 13:34 Delta Troponin T 0.90 ABS# (0-10) 06/10/24 13:34 Troponin T Hi Sens 6Hr 21.23 ng/L (0-15) H 06/10/24 17:29 Troponin T Hi Sens 6Hr Delta -0.77 ng/L (0-12) L 06/10/24 17:29 Total Protein 6.0 g/dL (6.6-8.7) L 06/11/24 04:50 Albumin 3.6 g/dL (3.5-5.2) 06/11/24 04:50 Globulin 2.4 g/dL (1.3-4.6) 06/11/24 04:50 Triglycerides 141 mg/dL (0-150) 06/10/24 11:34 Cholesterol 153 mg/dL (0-200) 06/10/24 11:34 LDL Cholesterol, Calc 88 mg/dL (50-129) 06/10/24 11:34 HDL Cholesterol 37 mg/dL (60-100) L 06/10/24 11:34 LDL/HDL Ratio 2.38 RATIO (0.00-3.22) 06/10/24 11:34 Cholesterol/HDL Ratio 4.14 mg/dL (1.0-5.00) 06/10/24 11:34 TSH 3.90 uIU/mL (0.27-4.20) 06/10/24 11:34 Urine Color Yellow (Yellow) 06/10/24 21: Urine Appearance Clear (CLEAR) 06/10/24 21: Urine pH 8.0 (5-7) A 06/10/24 21: Ur Specific [place] 1.011 (1.005-1.030) 06/10/24 21: Urine Protein 1+ (Negative) A 06/10/24 21: Urine Glucose (UA) Negative (Normal) 06/10/24 21: Urine Ketones Negative (Negative) 06/10/24 21: Urine Blood Negative (Negative) 06/10/24 21:30 Urine Nitrate Negative (Negative) 06/10/24 21:30 Urine Bilirubin Negative (Negative) 06/10/24 21:30 Urine Urobilinogen 0.2 mg/dL (Negative) 06/10/24 21:30 Ur Leukocyte Esterase Negative (Negative) 06/10/24 21:30 Urine RBC 0-2 /hpf (0-2) 06/10/24 21:30 Urine WBC 0-5 /hpf (0-5) 06/10/24 21:30 Ur Squamous Epith Cells 0-5 /hpf (0-5) 06/10/24 21:30 Amorphous Sediment Not Reportable 06/10/24 21:30 Urine Bacteria None seen /hpf (NONE) 06/10/24 21:30 Hyaline Casts 0-4 /lpf H 06/10/24 21:30 Vitals Last Vital Signs Temp 98.4 F 06/11/24 08:00 Pulse 78 06/11/24 08:30 Resp 18 06/11/24 08:30 BP 165/76 06/11/24 08:30 Pulse Ox 97 06/11/24 08:30 O2 Del Method Room Air 06/11/24 08:00 FiO2 21 06/10/24 23:42 Discharge Plan Discharge Patient Disposition: Home Condition: Stable Prescriptions: New clonidine HCl 0.1 mg Tablet 0.2 mg PO BID 30 Days Qty: 120 0RF aspirin 81 mg Tablet,Delayed Release (Dr/Ec) 81 mg PO DAILY 30 Days Qty: 30 0RF chlorthalidone 25 mg tablet 25 mg PO DAILY 30 Days Qty: 30 0RF metformin 500 mg tablet 500 mg PO BID 30 Days Qty: 60 0RF (DME) glucometer testing kit See Rx Instructions .Route .MEDSUPPLY Qty: 1 0RF Rx Instructions: check BS TID lancets#100 strips#100 insulin aspart U-100 [Novolog FlexPen U-100 Insulin] 100 unit/mL (3 mL) insulin pen See Rx Instructions .ROUTE .COMPLEX MDD 20 Qty: 15 0RF Rx Instructions: Inject, subcut, 3 times daily, after meals, based on sliding scale provided (DME) lancets Misc See Rx Instructions .Route Qty: 200 0RF Rx Instructions: check bs tid w meals, (DME) test strips See Rx Instructions .Route .MEDSUPPLY Qty: 200 0RF Rx Instructions: check bs tid with meals Continued escitalopram oxalate 20 mg tablet 10 mg PO DAILY simvastatin 40 mg tablet 20 mg PO DAILY Rx Instructions: take 1/2 tablet by mouth every evening tamsulosin 0.4 mg capsule 0.4 mg PO DAILY sildenafil 100 mg tablet 100 mg PO DAILY PRN (Reason: activity) Rx Instructions: administer 30 minutes to 4 hours before activity famotidine 20 mg Tablet 20 mg PO BID levothyroxine 125 mcg Tablet 125 mcg PO DAILY amlodipine 10 mg Tablet 10 mg PO DAILY 30 Days Qty: 30 0RF losartan 100 mg Tablet 100 mg PO DAILY 30 Days Qty: 30 0RF Discontinued clonidine HCl 0.1 mg tablet 0.1 mg PO BID Discharge Orders: Discharge Order (Routine); Ordered 06/11/24 Ordered By: Frankie Gibbs Referrals: Cash Strauss M.D [Physician] - 7-10 days Lewis Clements, DO [Primary Care Provider] - Discharge Diet: Cardiac Discharge Activity: Resume usual activity Patient Instructions: Type 2 Diabetes, Diabetes and Diet, Chlorthalidone (By mouth), Metformin (By mouth) (Glucophage, Glucophage XR, Fortamet,..., Insulin Aspart, Recombinant (By injection) (Novolog, Novolog..., Low Sodium Diet, Seasoning Without Salt (DC), Insulin Pens (DC), Insulin Pens (GEN), Opioid Safety Activity Restrictions/Additional Instructions: -Please monitor your blood sugars closely -Monitor your blood sugars 3 times daily as after meals -Please record your blood sugars, and a blood sugar log -For your NovoLog -Please inject blood sugar after meals based on sliding scale provided -Do not inject insulin if you do not eat as hypoglycemia kills -This is a NovoLog sliding scale -Insulin sliding ?fingerstick? Insulin ?141-180?0 units/sq 181-220?2 units/sq ?221-260?4 units/sq ?261-300 6 units/sq ?301-350?8 units/sq ?351-400 10 units/sq ?401-450?12 units/sq >450? 14units/sq -If your blood sugar is greater than 500 go to the emergency room -If your blood sugar is less than 60 or at anytime you feel lightheaded or dizzy or diaphoretic or have chest palpitations check your blood sugar, and eat a hard candy or drink orange juice and go immediately to the emergency room -Remember hypoglycemia kills, so if his blood sugar is less than 60 we have to increase it by taking in a sugary meal such as a hard candy or orange juice and go to the emergency room -If you have any questions please call us where here to help --Take metformin 500 mg twice daily, have your primary care provider recheck your liver function and your kidney function in 1 week -Please monitor your blood pressure daily -If your blood pressure greater than 180/100, please come back to the emergency room -See your primary care provider recheck blood pressure in 1 week -If you have chest pain please come back to emergency room -Follow-up with cardiology -Monitor for lightheadedness, dizziness if so come back to the hospital -Please call Thursday to schedule a follow-up appointment with your primary care provider, Dr. Clements. -Please call Thursday to schedule a follow-up appointment with Dr. Strauss in 7 -10 days. Discharge Attestations Time Spent in Discharge Care*: greater than 30 min Quality Metrics Clinical Quality Measures [ No reported AMI, CVA or VTE this stay] Coding Level of Care Code 82362 Total time (in minutes) for Discharge: 45 Diagnoses Hypertensive urgency I16.0
[2024-06-11] MEDS: chlorthalidone 25 mg Tablet PO (11:15)
[2024-06-11 11:21] LABS: Glucose Point of Care 224 mg/dL (70-110)
--- NOTE | 2024-06-11 12:03 | PC.NURSE ---
Walked around ICU, no reports of shortness of breath, dizziness or chest pain. Returned to chair in patient room. Blood pressure 172/89. Will continue to monitor blood pressure.
[2024-06-11] MEDS: insulin lispro 100 unit/1 mL SUBCUT (12:17)
--- NOTE | 2024-06-11 12:51 | PC.NURSE ---
Updated Dr. Gibbs on current v/s, that patient has walked with no dizziness, chest pain, or shortness of breath. Current echo report, blood sugar and dose of insulin given.
--- NOTE | 2024-06-11 14:38 | PC.NURSE ---
Discharged with grandson to home. Patient ambulated w/o difficulty. Education done with patient, grandson, and patients daughter via phone.
--- NOTE | 2024-06-11 17:27 | USCV_ITS ---
Byron Dixon Age: 79 Gender: M : 1945 Exam Date: 06/11/2024 10:09 Ordering Phys: Frankie Gibbs MD Technologist: Isaak Yates Exam Location: [facility] [place] Indication: chest pain BP: 165 / 76 HR: 59 Rhythm: Sinus Technical Quality: Adequate MEASUREMENTS (Male / Female) Normal Values 2D ECHO LV Diastolic Diameter PLAX 4.6 cm 4.2 - 5.9 / 3.9 - 5.3 cm IVS Diastolic Thickness 1.5 cm 0.6 - 1.0 / 0.6 - 0.9 cm IVS Systolic Thickness 1.9 cm LVPW Diastolic Thickness 1.6 cm 0.6 - 1.0 / 0.6 - 0.9 cm LVPW Systolic Thickness 1.7 cm LVOT Diameter 2.0 cm LV Ejection Fraction 2D Teich 77.4 % LV Ejection Fraction MOD 4C 64.4 % LV Ejection Fraction MOD 2C 75.3 % LV Ejection Fraction 2C AL 76.0 % LA Diameter 3.8 cm RA Systolic Volume 4C AL 42.3 ml RA Systolic Volume 4C MOD 43.7 ml LA Sys Volume AL 67.6 cm cubed LA Sys Volume Index AL 33.0 cm cubed/m squared Aorta at Sinotubular Diameter 2.5 cm IVC Diameter 1.6 cm M-MODE LA Ao Ratio MM 1.4 AV Cusp Separation MM 2.0 cm DOPPLER AV Peak Velocity 158.3 cm/s LVOT Peak Velocity 88.0 cm/s AV Area Cont Eq vti 1.9 cm squared AV Area Cont Eq pk 1.8 cm squared MV Peak Velocity 118.0 cm/s MV Area PHT 3.9 cm squared Mitral E to A Ratio 0.8 TV Peak Velocity 278.0 cm/s TR Peak Velocity 318.5 cm/s TR Peak Gradient 40.6 mmHg TR Mean Velocity 266.0 cm/s TR Mean Gradient 30.3 mmHg TR Velocity Time Integral 106.6 cm PV Peak Velocity 70.0 cm/s RV Ejection Time 0.3 s FINDINGS Left Ventricle Left ventricle normal size. LV systolic function is normal with EF of 55 to 60%. No regional wall motion abnormalities seen. Grade 1 diastolic dysfunction Right Ventricle Normal in size and function Right Atrium Normal in size Left Atrium Normal in size Mitral Valve Structurally normal mitral valve. Mild mitral regurgitation. Aortic Valve Structurally normal aortic valve. No significant stenosis. Mild aortic regurgitation Tricuspid Valve Mild tricuspid regurgitation. Insufficient TR jet to evaluate RVSP Pulmonic Valve Not well visualized Pericardium Normal Aorta Normal in size IVC Appears to be normal CONCLUSIONS LV systolic function is normal with EF of 55-60% Grade 1 diastolic dysfunction Mild mitral regurgitation Mild aortic regurgitation Mild tricuspid regurgitation No comparsion studies are available. Cash Strauss MD (Electronically Signed) Final Date: 11 June 2024 11:05 S
== END 2024-06-11 14:37 | disposition home or self-care (01) ==
LOC: ER 12:38 → ICU 23:51
PROVIDERS: Admitting Provider Family Medicine; Emergency Provider Family Medicine; PCP Emergency Medicine Emergency Medical Services; Visit Provider Family Medicine
DX: I16.0 Hypertensive urgency (principal); E03.9 Hypothyroidism, unspecified; E78.5 Hyperlipidemia, unspecified
CPT/HCPCS: 36415; 36416; 70450; 71045; 80053; 80061; 81001; 82962; 83036; 83735; 84100; 84443; 84484; 85025; 93005; 93306; 94664; 96365; 96366; 96372; 96375; 96376; 99285; G0378; J0360; J1650; J1815; J2470

== ENCOUNTER → 2024-08-02 13:07 | Outpatient (BNVA) | payer OTHER, SELFPAY | PROVIDERS: PCP Emergency Medicine Emergency Medical Services; Visit Provider Podiatrist Foot & Ankle Surgery | DX: L60.3 Nail dystrophy (principal); G62.9 Polyneuropathy, unspecified; E11.42 Type 2 diabetes mellitus with diabetic polyneuropathy; Z79.4 Long term (current) use of insulin | CPT/HCPCS: 11056; 11721; 99203 ==

== ENCOUNTER → 2024-09-14 09:27 | Outpatient (BNVA) | payer OTHER, SELFPAY | PROVIDERS: PCP Emergency Medicine Emergency Medical Services; Visit Provider Internal Medicine | DX: R07.9 Chest pain, unspecified (principal) | CPT/HCPCS: 93005; 99204 ==

== ENCOUNTER 2024-09-24 07:15 | Emergency (ER) | payer OTHER, MEDICARE, SELFPAY ==
[2024-09-24] VITALS (9 sets, daily range): BP systolic 144–224; BP diastolic 76–119; PULSE 68–77; RESP 16; TEMP 36.8; O2SAT 96–100; BMI 33.5
--- NOTE | 2024-09-24 07:56 | W.ED.GENADLT ---
HPI - General Adult General: Chief complaint: General Medical Stated complaint: headache feels bad Time Seen by Provider: 09/24/24 07:25 History of Present Illness: 79-year-old male presents emergency room stating he just does not feel well he has a headache. He says he has been feeling well for the last several days been very tired he denies fever sweats chills nausea vomiting diarrhea he has some cough he states when he coughs he gets pain across his upper back he is not coughed anything up he has not had any hemoptysis he has not been around anyone he knows of that has been ill no dysuria urgency or frequency no flank pain. He has not been taking his medications at home because he just does not feel well. Associated symptoms: Deny chest pain, dyspnea or rash Related Data Home Medications ?Medication ?Instructions ?Recorded ?Confirmed escitalopram oxalate 20 mg tablet 10 mg PO DAILY 09/27/19 09/14/24 simvastatin 40 mg tablet 20 mg PO DAILY 09/27/19 09/14/24 tamsulosin 0.4 mg capsule 0.4 mg PO DAILY 09/27/19 09/14/24 sildenafil 100 mg tablet 100 mg PO DAILY PRN activity 04/01/24 08/02/24 famotidine 20 mg tablet 20 mg PO BID 06/10/24 09/14/24 levothyroxine 125 mcg tablet 125 mcg PO DAILY 06/10/24 09/14/24 ibuprofen 200 mg capsule 200 mg PO Q6H PRN 09/14/24 09/14/24 Previous Rx's ?Medication ?Instructions ?Recorded amlodipine 10 mg tablet 10 mg PO DAILY 30 days #30 tabs 06/11/24 glucometer testing kit #1 ea 06/11/24 lancets #200 ea 06/11/24 losartan 100 mg tablet 100 mg PO DAILY 30 days #30 tabs 06/11/24 test strips #200 ea 06/11/24 diabetic shoes with 3 inserts #1 ea 08/02/24 Allergies Allergy/AdvReac Type Severity Reaction Status Date / Time No Known Allergies Allergy Verified 09/14/24 09:39 Review of Systems Const: Denies: fever(s) or chills Card: Denies: chest pain Resp: Reports: non-productive cough; Denies: dyspnea GI: Denies: abdominal pain : Denies: dysuria, urinary frequency or urinary urgency Musc: Denies: neck pain or back pain Skin/Breast: Denies: rash PFSH ED PFSH: Medical History Elevated blood pressure reading Acute pharyngitis Cervical disc disorder with myelopathy of mid-cervical region Lumbar post-laminectomy syndrome Spinal stenosis of lumbar region at multiple levels Displacement of lumbar disc with radiculopathy Surgical History History of lumbar surgery (~1979) [place], [place] Lumbar decompression History of parathyroidectomy History of knee surgery (~08/12/16) Right History of lumbar surgery (~02/11/10) Dr. Chase Bilateral L3-L4 decompression Family History Mother Diabetes Father Cancer Heart disease Social History Smoking and tobacco/nicotine status: never used tobacco/nicotine Alcohol intake: current Substance/Drug Use: never Household members: spouse Marital status: Current occupational status: retired Physical Exam Const: GENERAL APPEARANCE: cooperative ORIENTATION/CONSCIOUSNESS: Yes awake, Yes oriented to person, Yes oriented to place and Yes oriented to time HENMT: COMMON NORMALS: normocephalic, atraumatic and hearing grossly normal bilaterally HEAD & SCALP: normocephalic and atraumatic Resp: COMMON NORMALS: normal respiratory effort, No retractions, No use of accessory muscles and clear to auscultation bilaterally AUSCULTATION: clear to auscultation bilaterally Cardio: COMMON NORMALS: regular rate, regular rhythm and No murmurs present (Cardio) RATE: regular rate RHYTHM: regular rhythm GI: COMMON NORMALS: Soft to palpation and No hepatosplenomegaly present AUSCULTATION: Yes normoactive bowel sounds PALPATION: Yes Soft to palpation, No Tenderness to palpation present (GI), No Guarding due to palpation present (GI) and Yes No hepatosplenomegaly present Extremity: COMMON NORMALS: normal to inspection, capillary refill normal, no clubbing, cyanosis or edema, no calf tenderness and no pedal edema Neuro: SENSORIUM/ORIENTATION: Yes oriented to person, Yes oriented to place and Yes oriented to time Skin: COMMON NORMALS: no rashes or lesions noted GENERAL SKIN EXAM: no rashes or lesions noted Course Vital Signs: Vital signs: Vital Signs Temperature 98.3 F 09/24/24 07:35 Pulse Rate 68 09/24/24 09:41 Respiratory Rate 16 09/24/24 07:35 Blood Pressure 173/90 09/24/24 09:41 Pulse Oximetry 98 09/24/24 09:41 Oxygen Delivery Me thod Room Air 09/24/24 07:35 MDM - General Adult Medical Decision Making Patient test positive for COVID. Will discharge patient home supportive cares he is outside the window for any antivirals. He can use [id number] cough cold medications as needed Medical Records I reviewed the patient's medical records. Lab Data I reviewed the patient's lab results. 09/24/24 07:57 09/24/24 07:57 Laboratory Results WBC 7.63 10^3/uL (3.29-11.43) 09/24/24 07:57 RBC 5.12 10^6/uL (3.85-5.65) 09/24/24 07:57 Hgb 14.50 g/dL (11.27-16.99) 09/24/24 07:57 Hct 42.9 % (37-53) 09/24/24 07:57 MCV 83.8 fl (82-101) 09/24/24 07:57 MCH 28.3 pg (27-33) 09/24/24 07:57 MCHC 33.8 g/dL (30-55) 09/24/24 07:57 RDW 13.2 % (12.1-15.1) 09/24/24 07:57 Plt Count 205 10^3/cmm (157-399) 09/24/24 07:57 MPV 10.1 fL (7.4-10.4) 09/24/24 07:57 Neut % (Auto) 68.1 % 09/24/24 07:57 Lymph % (Auto) 16.1 % 09/24/24 07:57 [place] % (Auto) 14.0 % 09/24/24 07:57 Eos % (Auto) 0.7 % 09/24/24 07:57 Baso % (Auto) 0.3 % 09/24/24 07:57 Neut # (Auto) 5.20 10^3/uL (1.8-7.7) 09/24/24 07:57 Lymph # (Auto) 1.2 10^3/uL (0.8-4.8) 09/24/24 07:57 [place] # (Auto) 1.1 10^3/uL (0.2-0.9) H 09/24/24 07:57 Eos # (Auto) 0.1 10^3/uL (0.0-0.8) 09/24/24 07:57 Baso # (Auto) 0.0 10^3/uL (0.0-0.1) 09/24/24 07:57 Nucleated RBC % (auto) 0 % 09/24/24 07:57 Nucleated RBCs # 0.0 /100WBC 09/24/24 07:57 Sodium 137 mmol/L (136-145) 09/24/24 07:57 Potassium 3.0 mmol/L (3.5-5.1) L 09/24/24 07:57 Chloride 99 mmol/L (98-107) 09/24/24 07:57 Carbon Dioxide 24 mmol/L (22-29) 09/24/24 07:57 Anion Gap 17.0 (5-19) 09/24/24 07:57 BUN 12 mg/dL (8-23) 09/24/24 07:57 Creatinine 0.9 mg/dL (0.7-1.2) 09/24/24 07:57 GFR Calculation Not Reportable 09/24/24 07:57 Glucose 157 mg/dL (65-115) H 09/24/24 07:57 Calculated Osmolality 287 mOsm/kg (285-295) 09/24/24 07:57 Calcium 8.1 mg/dL (8.5-10.5) L 09/24/24 07:57 Total Bilirubin 0.5 mg/dL (0.15-1.2) 09/24/24 07:57 AST 20 U/L (0-40) 09/24/24 07:57 ALT 19 U/L (0-41) 09/24/24 07:57 Alkaline Phosphatase 62 U/L (40-130) 09/24/24 07:57 Total Protein 6.4 g/dL (6.6-8.7) L 09/24/24 07:57 Albumin 3.4 g/dL (3.5-5.2) L 09/24/24 07:57 Globulin 3.0 g/dL (1.3-4.6) 09/24/24 07:57 Influenza A (PCR) Negative (Negative) 09/24/24 08:24 Influenza Type B (PCR) Negative (Negative) 09/24/24 08:24 RSV (PCR) Negative (Negative) 09/24/24 08:24 SARS-CoV-2 (PCR) Positive (Negative) A 09/24/24 08:24 All radiology interpretation(s) finalized by discharge Discharge Plan Discharge Patient Disposition: Home Clinical Impression: COVID-19, Hypertension Condition: Stable Prescriptions: No Action escitalopram oxalate 20 mg tablet 10 mg PO DAILY simvastatin 40 mg tablet 20 mg PO DAILY Rx Instructions: take 1/2 tablet by mouth every evening tamsulosin 0.4 mg capsule 0.4 mg PO DAILY (DME) diabetic shoes with 3 inserts See Rx Instructions .Route .MEDSUPPLY Qty: 1 0RF Rx Instructions: As directed to the shoe guherve sildenafil 100 mg tablet 100 mg PO DAILY PRN (Reason: activity) Rx Instructions: administer 30 minutes to 4 hours before activity ibuprofen 200 mg capsule 200 mg PO Q6H PRN famotidine 20 mg Tablet 20 mg PO BID levothyroxine 125 mcg Tablet 125 mcg PO DAILY amlodipine 10 mg Tablet 10 mg PO DAILY 30 Days Qty: 30 0RF losartan 100 mg Tablet 100 mg PO DAILY 30 Days Qty: 30 0RF (DME) glucometer testing kit See Rx Instructions .Route .MEDSUPPLY Qty: 1 0RF Rx Instructions: check BS TID lancets#100 strips#100 (DME) lancets Misc See Rx Instructions .Route Qty: 200 0RF Rx Instructions: check bs tid w meals, (DME) test strips See Rx Instructions .Route .MEDSUPPLY Qty: 200 0RF Rx Instructions: check bs tid with meals Discharge Orders: Discharge ED (Routine); Ordered 09/24/24 Ordered By: Cachorro Conte Referrals: Lewis Clements, DO [Primary Care Provider] - Discharge Diet: Usual diet Discharge Activity: Resume usual activity Patient Instructions: COVID-19 (Coronavirus Disease 2019) (ED), Opioid Safety, Pain Management Activity Restrictions/Additional Instructions: [facility] for your healthcare needs today. It is very important that you follow up as instructed or that you return to the Emergency Department should you have concerns or if your condition changes or worsens in any way. You were seen in the emergency room complaining of generally not feeling well. You tested positive for COVID-19. Your oxygen saturations were normal. Your blood pressure was also markedly elevated. This is typical with COVID and is exacerbated by not taking her blood pressure medicines it is very important to take your blood pressure medicines regularly. Follow-up with your primary care doctor as needed. Print Language: [place] Leonean Coding Level of Care Code ED Traffic Agent for Laura Albrecht
[2024-09-24 08:17] LABS: Basophils % 0.3 %; Eosinophils # 0.1 10^3/uL (0.0-0.8); Eosinophils % 0.7 %; Hematocrit 42.9 % (37-53); Lymphocytes # 1.2 10^3/uL (0.8-4.8); Lymphocytes % 16.1 %; Mean Corpuscular HGB Conc 33.8 g/dL (30-55); Mean Corpuscular Hemoglobin 28.3 pg (27-33); Mean Corpuscular Volume 83.8 fl (82-101); Mean Platelet Volume 10.1 fL (7.4-10.4); Monocytes # 1.1 10^3/uL (0.2-0.9); Neutrophils % 68.1 %; Nucleated Red Blood Cells % 0 %; Platelet Count 205 10^3/cmm (157-399); Red Blood Count 5.12 10^6/uL (3.85-5.65); Red Cell Distribution Width 13.2 % (12.1-15.1); White Blood Count 7.63 10^3/uL (3.29-11.43)
[2024-09-24] MEDS: amlodipine 10 mg Tablet PO (08:27)
[2024-09-24] MEDS: losartan 50 mg Tablet 100 MG PO (08:27)
[2024-09-24 08:36] LABS: Alanine Aminotransferase 19 U/L (0-41); Albumin Level 3.4 g/dL (3.5-5.2); Alkaline Phosphatase 62 U/L (40-130); Aspartate Amino Transferase 20 U/L (0-40); Blood Urea Nitrogen 12 mg/dL (8-23); Calcium 8.1 mg/dL (8.5-10.5); Carbon Dioxide 24 mmol/L (22-29); Chloride 99 mmol/L (98-107); Creatinine Clr Calc Pharmacy 73.9072; Glucose 157 mg/dL (65-115); Osmolality Calculated 287 mOsm/kg (285-295); Sodium 137 mmol/L (136-145); Total Bilirubin 0.5 mg/dL (0.15-1.2); Total Protein 6.4 g/dL (6.6-8.7)
[2024-09-24] MEDS: hyDRALAzine 20 mg/mL INJ 1 mL IVP (08:38)
[2024-09-24] MEDS: labetalol 5 mg/mL SDV 20mL 10 MG IVP (08:38)
[2024-09-24 09:16] LABS: Influenza A NEGATIVE (Negative); Influenza B NEGATIVE (Negative); Respiratory Syncytial Virus Ce NEGATIVE (Negative)
[2024-09-24 09:20] LABS: SARS-CoV-2 PCR Positive (Negative)
--- NOTE | 2024-09-24 10:13 | PC.NURSE ---
Wasted 90 mg of labetalol in the medication waste bin. Visualized by [facility] charge nurse.
== END 2024-09-24 09:42 | disposition home or self-care (01) ==
PROVIDERS: Emergency Provider Family Medicine; PCP Emergency Medicine Emergency Medical Services
DX: U07.1 COVID-19 (principal); I10 Essential (primary) hypertension; Z11.52 Encounter for screening for COVID-19
CPT/HCPCS: 80053; 85025; 87637; 96374; 96375; 99284; J0360; J3490

== ENCOUNTER 2024-09-30 06:44 | Outpatient (CLI) | payer OTHER, SELFPAY ==
--- NOTE | 2024-09-30 07:04 | ECG_ITS ---
[facility] Test Date: 2024-09-30 Pat Name: Byron Dixon Department: Room: Gender: Male Heating Equipment Installer: : 1945 Requested By: Cash Strauss Order Number: [id number] Jovanny MD: Cash Strauss M.D. Interpretive Statements LEXISCAN: Procedure: At the baseline, the blood pressure was 173/76 mmHg with a heart rate of 68 bpm. The electrocardiogram showed normal sinus rhythm, normal axis with normal ST and T's. The Lexiscan was infused over a period of 20 seconds. A total of 0.4 mg of Lexiscan was infused. The stress phase was continued for a total of 5 minutes. Heart rate was at the end of stress phase was 89 bpm and a blood pressure of 118/69 mmHg. The EKG at the peak infusion revealed normal sinus rhythm with no significant ST-T wave changes. Sestamibi was injected 20 seconds after the Lexiscan infusion. Blood pressure at the end of recovery phase was 106 /62 mmHg with a heart rate of 89 bpm. Conclusion: 1. Normal EKG response to Lexiscan infusion 2. No Lexiscan induced chest pain or cardiac arrhythmia. 3. Normal blood pressure and heart rate response. 4. Sestamibi/sestamibi perfusion scan pending; see separate report. Electronically Signed On 10-04-2024 22:33:19 CDT by Cash Strauss M.D. [email or web address]
[2024-09-30 07:05] VITALS: BMI 32.3
--- NOTE | 2024-09-30 07:05 | NMCV_ITS ---
NM khushi perf SPECT r/s* [id number] Byron Dixon Age: 79 Gender: M : 1945 Exam Date: 09/30/2024 07:52 Ordering Phys: Cash Strauss M.D ([email or web address]) Technologist: AYO Tilley Exam Location: [facility] Indications: cp STRESS TEST Please [facility] IMAGE PROTOCOL Rest/Stress 1 Lexiscan Day Radiopharmaceutical Dose (mCi) Administration Site Administered by Rest: Tc-99m 10.7 IV AYO Tilley Sestamibi Stress:Tc-99m 32.8 IV Marissa Hardy, INFO SPECIALIST Sestamibi Rest: 30-Sep-2024 60 Discovery 630 Stress: 30-Sep-2024 30 Discovery 630 0.4mg Lexiscan. Images obtained in supine and prone position. SPECT RESULTS Technical Quality: Good Raw Data Analysis: Normal Image Corrections: No attenuation or motion correction applied Summed Stress Score: 1 Summed Rest Score: 0 Summed Difference Score: 1 PERFUSION FINDINGS There is a small area of reversible perfusion defect seen in apical inferior wall. This is consistent with small area of ischemia in the RCA territory. FUNCTIONAL RESULTS (calculated via Gated SPECT) Stress Image LV EF (%): 61 Stress EDV (mL):113 TID: 1.06 Stress ESV (mL):44 FUNCTIONAL FINDINGS: There is normal left ventricular systolic function. IMPRESSIONS 1. Small area of ischemia noted in the RCA territory. 2. LV systolic function is normal Cash Strauss MD (Electronically Signed) Final Date: 30 September 2024 09:25 S
[2024-09-30] MEDS: regadenoson 0.4 Mg/5 ml Syringe IVP (08:11)
[2024-09-30 08:24] VITALS: BP 142/64; PULSE 69
== END 2024-09-30 06:45 | disposition home or self-care (01) ==
LOC: CDL 06:46
PROVIDERS: Visit Provider Internal Medicine
DX: R07.9 Chest pain, unspecified (principal); R93.1 Abnormal findings on diagnostic imaging of heart and coronary circulation
CPT/HCPCS: 36415; 78452; 93017; 96374; A9500; J2785

== ENCOUNTER → 2025-01-24 12:49 | Outpatient (BNVA) | payer OTHER, SELFPAY | PROVIDERS: Visit Provider Internal Medicine | DX: I10 Essential (primary) hypertension (principal) | CPT/HCPCS: 99213 ==